=== PATIENT | male | born 1980 | race Two or more races ===

== ENCOUNTER 2020-11-28 07:16 | Day surgery (SDC) | payer OTHER ==
[~2020-11-28 07:16] MED LIST: ADULT LOW DOSE81 M1 PO; COZAAR50 MG PO; LIPITOR40 M1 PO
[2020-11-28] MEDS ORDERED: TYLENOL ARTHRI650 MG PO (11:48)
[2020-11-28] MEDS ORDERED: ULTRAM50 MG PO ×2 (11:48→13:04)
[2020-11-28] MEDS ORDERED: NEURONTIN300 MG PO (11:48)
[2020-11-28] MEDS ORDERED: MIRALAX17 GM PO (11:48)
== END 2020-11-28 14:15 | disposition home or self-care (01) ==
LOC: CIR.AMB 07:16
PROVIDERS: ATTEND Surgery
DX: K40.90 Unilateral inguinal hernia, without obstruction or gangrene, not specified as recurrent (principal); D17.6 Benign lipomatous neoplasm of spermatic cord; Z20.822 Contact with and (suspected) exposure to COVID-19

== ENCOUNTER 2022-06-13 11:46 | Emergency (ER) | payer OTHER ==
[~2022-06-13] VITALS: Ht 170.2 cm; Wt 85.3 kg
[~2022-06-13 11:46] MED LIST changes: +MIRALAX17 GM PO; +NEURONTIN300 MG PO; +TYLENOL ARTHRI650 MG PO; +ULTRAM50 MG PO
== END 2022-06-13 13:39 | disposition home or self-care (01) ==
LOC: ER 11:46
DX: B02.9 Zoster without complications (principal); I10 Essential (primary) hypertension